=== PATIENT | male | born 1970 | race African-American/Black ===

== ENCOUNTER 2018-05-07 06:41 | Emergency (ER) | payer BC ==
[~2018-05-07] VITALS: Ht 172.7 cm; Wt 106.6 kg
[~2018-05-07 06:41] MED LIST: CIPROFLOXACIN500 M1 PO; FLAGYL500 MG PO; LISINOPRIL10 MG PO; NORCO 5-325 TA1 EACH PO; NORCO 7.5-3251 EACH PO; ZPAK PO
[2018-05-07] MEDS ORDERED: NOHOMEMEDICATIONS (06:57)
[2018-05-07 08:01] VITALS: BP 151/94
== END 2018-05-07 08:32 | disposition home or self-care (01) ==
LOC: ER 06:41
DX: M25.562 Pain in left knee (principal); M25.572 Pain in left ankle and joints of left foot; W18.30XA Fall on same level, unspecified, initial encounter; Y93.89 Activity, other specified; Y92.89 Other specified places as the place of occurrence of the external cause; Y99.8 Other external cause status

== ENCOUNTER 2018-07-13 22:10 | Emergency (ER) | payer BC ==
[~2018-07-13] VITALS: Ht 172.7 cm; Wt 99.8 kg
[~2018-07-13 22:10] MED LIST changes: +NOHOMEMEDICATIONS
[2018-07-13 23:22] LABS: ABSOLUTE NEUTROPHILS 9.2 thou/uL (1.4-8.2); BASOPHILS 0.6 % (0.0-2.0); EOSINOPHILS 1.4 % (0.0-3.0); HEMATOCRIT 43.6 % (42.0-52.0); HEMOGLOBIN 14.3 gm/dL (14.0-18.0); LYMPHOCYTES 12.3 % (24.0-44.0); MCH 24.4 pg (26.0-34.0); MCHC 32.8 g/dL (28.0-37.0); MCV 74.2 fL (80.0-100.0); MONOCYTES 7.9 % (1.0-8.0); PLATELET COUNT 176 thou/uL (150-400); POLYS 77.8 % (36.0-66.0); RBC 5.87 mil/uL (4.50-6.00); RDW 15.4 % (10.5-14.5); WBC 11.8 thou/uL (4.0-11.0)
[2018-07-13 23:28] LABS: CALCIUM 8.7 mg/dL (8.5-10.1); POTASSIUM 3.3 mmol/L (3.5-5.1)
[2018-07-14] MEDS ORDERED: CORTISPORIN OTI10 M2 OTIC (00:46)
[2018-07-14] MEDS ORDERED: ZOFRAN ODT4 MG PO (00:48)
[2018-07-14 00:59] VITALS: BP 138/81
== END 2018-07-14 00:20 | disposition home or self-care (01) ==
LOC: ER 22:10
PROVIDERS: Emergency Medicine
DX: H60.91 Unspecified otitis externa, right ear (principal); K52.9 Noninfective gastroenteritis and colitis, unspecified

== ENCOUNTER 2018-11-17 14:52 | Emergency (ER) | payer BC ==
[~2018-11-17] VITALS: Ht 172.7 cm; Wt 117.9 kg
[~2018-11-17 14:52] MED LIST changes: +CORTISPORIN OTI10 M2 OTIC; +ZOFRAN ODT4 MG PO
[2018-11-17] MEDS ORDERED: IBUPROFEN 600600 M1 PO (16:47)
[2018-11-17 17:25] VITALS: BP 154/61
== END 2018-11-17 17:30 | disposition home or self-care (01) ==
LOC: ER 14:52
DX: S39.012A Strain of muscle, fascia and tendon of lower back, initial encounter (principal); S56.311A Strain of extensor or abductor muscles, fascia and tendons of right thumb at forearm level, initial encounter; V89.2XXA Person injured in unspecified motor-vehicle accident, traffic, initial encounter; Y92.89 Other specified places as the place of occurrence of the external cause; Y93.89 Activity, other specified; Y99.8 Other external cause status

== ENCOUNTER 2021-03-08 21:12 | Emergency (ER) | payer BC ==
[~2021-03-08] VITALS: Ht 172.7 cm; Wt 108.9 kg
[~2021-03-08 21:12] MED LIST changes: +IBUPROFEN 600600 M1 PO
[2021-03-08] MEDS ORDERED: MOBIC15 MG PO (23:37)
[2021-03-08] MEDS ORDERED: ZOFRAN ODT4 MG PO (23:37)
[2021-03-08] MEDS ORDERED: GUAIFEN-CODEINE10 ML PO (23:37)
[2021-03-08 23:48] VITALS: BP 189/128
== END 2021-03-08 23:51 | disposition home or self-care (01) ==
LOC: ER 21:12
PROVIDERS: Emergency Medicine
DX: J06.9 Acute upper respiratory infection, unspecified (principal); Z20.822 Contact with and (suspected) exposure to COVID-19